=== PATIENT | male | born 1945 | race Hispanic/Latino ===

== ENCOUNTER 2021-05-19 19:25 | Emergency (ER) | payer MEDICARE ==
[2021-05-19] MEDS ORDERED: MORPHINE 4 MG/1 ML INJ IV ONE (22:17)
[2021-05-19 22:37] LABS: Basophils # (Auto) 0.1 K/mm3 (0.0-0.1); Basophils % (Auto) 0.8 % (0.0-1.8); Eosinophils # (Auto) 0.4 K/mm3 (0.0-0.4); Eosinophils % (Auto) 4.1 % (0.0-4.3); Hemoglobin 15.4 gm/dl (11.8-15.2); Lymphocytes # (Auto) 1.4 K/mm3 (1.2-5.4); Lymphocytes % (Auto) 12.9 % (13.4-35.0); Mean Corpuscular HGB Conc 34 % (32-34); Mean Corpuscular Volume 90 fl (84-94); Monocytes % (Auto) 9.2 % (0.0-7.3); Platelet Count 284 K/mm3 (140-440); Red Blood Count 5.14 M/mm3 (3.65-5.03); Red Cell Distribution Width 16.6 % (13.2-15.2)
[2021-05-19 22:49] LABS: INR 1.11 (0.87-1.13)
[2021-05-19 23:09] LABS: Alanine Aminotransferase 11 units/L (7-56); Albumin 4.2 g/dL (3.9-5); BUN/Creatinine Ratio 12; Blood Urea Nitrogen 11 mg/dL (9-20); Calcium 9.7 mg/dL (8.4-10.2); Hemolysis Index 15
[2021-05-19 23:09] LABS: Bacteria,Urine 1+ /HPF (Negative); Bilirubin,Urine NEG (Negative); Blood,Urine SM (Negative); Color,Urine Yellow (Yellow); Mucus,Urine 1+ /HPF; Protein,Urine <15 mg/dL mg/dL (Negative); Urobilinogen,Urine < 2.0 mg/dL (<2.0)
[2021-05-20] MEDS ORDERED: KETOROLAC 30 MG/1 ML INJ IV ONE (01:01)
[2021-05-20] MEDS ORDERED: MORPHINE 2 MG/1 ML INJ IV ONE (01:07)
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
[2021-05-20 12:37] VITALS: BP 130/77
--- NOTE | 2021-05-21 14:28 | Electrocardiograph Report ---
[facility] Test Date: 2021-05-19 Test Time: 19:59:41 Pat Name: PRIYANKA LIN Department: Room: Gender: M Study Director: ER : 1945 Requested By: RADHA GRIMALDO Order Number: [id number] Reading MD: Korey Green Measurements Intervals [place] Rate: 58 P: 43 OR: 178 QRS: -20 QRSD: 105 T: -7 QT: 435 QTc: 428 Interpretive Statements Sinus rhythm Probable left ventricular hypertrophy No previous ECG available for comparison Electronically Signed On 05-21-2021 14:27:53 EST by Korey Green
--- NOTE | 2021-05-23 15:02 | XRay Report ---
CHEST 1 VIEW INDICATION / CLINICAL INFORMATION: Chest Pain. COMPARISON: None available. FINDINGS: SUPPORT DEVICES: None. HEART / MEDIASTINUM: Borderline to mild cardiomegaly. Central vascular stranding bilaterally. LUNGS / PLEURA: Lungs bilaterally demonstrates a more peripheral regions of groundglass and interstit ial opacification no focal consolidation. Subtle nodular density measuring 2.5 cm right midlung not e xcluded. Upper lungs clear. No pneumothorax. ADDITIONAL FINDINGS: No significant additional findings. IMPRESSION: 1. Bilateral regions of suggestive interstitial scarring, superimposed infection not excluded. 2. Subtle nodular density right midlung not excluded. CT may be useful for further characterization. Signer Name: Frandy Vizcarra II, MD Signed: 05/19/2021 11:51 PM Workstation Name: [id number]
== END 2021-05-21 12:40 | disposition home or self-care (01) ==
LOC: ED 19:25
DX: R07.89 Other chest pain (principal); Z88.8 Allergy status to other drugs, medicaments and biological substances
CPT/HCPCS: 36415; 71045; 80053; 81001; 83690; 83880; 84484; 85025; 85610; 93005; 93010; 96374; 96376; 99284; J1885; J2270

== ENCOUNTER 2021-05-21 21:24 | Emergency (ER) | payer MEDICARE ==
[2021-05-21 22:48] VITALS: BP 127/79
--- NOTE | 2021-05-21 23:22 | Emergency Department Report ---
ED General Adult HPI - General Chief complaint: Chest Pain Stated complaint: SOB Time Seen by Provider: 05/21/21 22:54 Source: patient Mode of arrival: Wheelchair Limitations: Physical Limitation - History of Present Illness Initial comments: Chief complaint: "Is 25 degrees outside. 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 He has been staying in our hospital waiting room with his for the past 4 days. His car is not functional. His family members will not assist with jail. His daughter 2 years ago. Her surviving barrel filler head will not assist. Patient and have limited income. disability case manager attempted to assist with resources. According to social contact worker note on yesterday, patient was provided transportation and housing resources on yesterday. Patient has chronic chest pain and shortness of breath. He has had these symptoms for several months. He was evaluated at [facility] in [facility] 2 weeks ago. He underwent cardiac catheterization at that time. -: month(s) (Several months of symptoms including chronic chest pain or shortness of breath) Consistency: constant Improves with: none Worsens with: none Treatments Prior to Arrival: other (Patient and have been in the emergency department for the past 4 days.) - Related Data Allergies Allergy/AdvReac Type Severity Reaction Status Date / Time ketorolac [From Toradol] Allergy Rash Verified 05/20/21 01:06 butorphanol [From Stadol] AdvReac Hives Verified 05/19/21 19:48 ED Review of Systems ROS: Stated complaint: SOB Other details as noted in HPI Comment: All other systems reviewed and negative Constitutional: denies: fever, malaise Respiratory: shortness of breath. 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 - Surgical History Past Surgical History?: Yes Additional Surgical History: BILATEAL AMPUTEE - Social History Smoking Status: Never Smoker Substance Use Type: None ED Physical Exam - General Limitations: Physical Limitation General appearance: alert, in no apparent distress, other (No acute distress, talkative, appears comfortable) - Head Head exam: Present: atraumatic, normocephalic - Eye Eye exam: Present: normal appearance - ENT ENT exam: Present: mucous membranes moist - Neck Neck exam: Present: normal inspection - Respiratory Respiratory exam: Present: normal lung sounds bilaterally. Absent: respiratory distress - Cardiovascular Cardiovascular Exam: Present: regular rate, normal rhythm. Absent: systolic murmur, diastolic murmur, rubs, gallop - GI/Abdominal GI/Abdominal exam: Present: soft, normal bowel sounds. Absent: distended, tenderness, guarding, rebound - Rectal Rectal exam: Present: deferred - Extremities Exam Extremities exam: Present: other (Bilateral lower extremity amputation) - Back Exam Back exam: Present: normal inspection - Neurological Exam Neurological exam: Present: alert, oriented X3 - Psychiatric Psychiatric exam: Present: normal affect, normal mood - Skin Skin exam: Present: warm, dry, intact, normal color. Absent: rash ED Course Vital Signs 05/21/21 22:37 Temperature 98.7 F Pulse Rate 71 Respiratory 18 Rate Blood Pressure 127/79 O2 Sat by Pulse 96 Oximetry ED Medical Decision Making - Medical Decision Making 1. Homelessness: When I spoke with patient, he spoke extensively about his current social situation. He was concerned about being misplaced from the waiting room into the cold weather. 2. Chronic chest pain, chronic shortness of breath, stable vital signs, my colleague performed appropriate work-up 4 days ago. I reviewed documentation and EKG obtained at that time. Will encourage patient to use resources provided by case geospatial program management officer. He does not have any acute medical condition which needs further treatment evaluation. I have printed out the address of the transitional housing provided by his case management. Critical care attestation.: If time is entered above; I have spent that time in minutes in the direct care of this critically ill patient, excluding procedure time. ED Disposition Clinical Impression: Encounter for medical screening examination Disposition: HOME / SELF CARE / HOMELESS Is pt being admited?: No Does the pt Need Aspirin: No Condition: Stable
== END 2021-05-22 00:29 | disposition home or self-care (01) ==
LOC: ED 21:24
DX: Z00.00 Encounter for general adult medical examination without abnormal findings (principal); R07.89 Other chest pain; R06.02 Shortness of breath; Z88.8 Allergy status to other drugs, medicaments and biological substances; Z79.899 Other long term (current) drug therapy
CPT/HCPCS: 99282